=== PATIENT | male | born 1990 | race Caucasian/White ===

== ENCOUNTER 2019-11-09 09:28 | Emergency (ER) | payer OTHER ==
[2019-11-09 09:36] VITALS: BP 108/65; PULSE 90; TEMP 97.7; BMI 21.7
--- NOTE | 2019-11-09 10:40 | PDOC ---
History of Present Illness - General Chief Complaint: Respiratory Stated Complaint: COLD SYMPTOMS Time Seen by Provider: 11/09/19 09:59 History Source: Patient Exam Limitations: No Limitations - History of Present Illness Initial Comments: 11/09/19 10:36 Patient is a 29-year-old male with no past medical history who presents to the ED with complaint of bilateral hand pain after punching a wall yesterday, as well as a severe cold for the last 3 to 4 days. He states his cold got worse yesterday. He does admit to having a cough and subjective fevers. He is a smoker. He denies getting a flu shot this year. He denies any known sick contacts. His aunt gave him Advil last night which did not help. Past History - Past Medical History Allergies/Adverse Reactions: Allergies Allergy/AdvReac Type Severity Reaction Status Date / Time No Known Allergies Allergy Verified 11/09/19 09:36 Home Medications: Ambulatory Orders NK [No Known Home Medication] 11/09/19 COPD: No - Psycho Social/Smoking Cessation Hx Smoking History: Current some day smoker Information on smoking cessation initiated: No Review of Systems - Review of Systems Comments:: 11/09/19 10:36 - Review of Systems Able to Perform ROS?: Yes Constitutional: No: Night Sweats, Weakness; Positive: Fever, Chills, Loss of Appetite HEENTM: No: Eye Pain, Vision changes, Ear Pain, Throat Pain, Throat Swelling, Mouth Pain, Difficulty Swallowing; Positive nasal congestion Respiratory: No: , Shortness of Breath, Wheezing, Sputum Production; Positive: Cough Cardiac (ROS): No: Chest Pain, Chest Tightness, Palpitations, Irregular Heart Beat, Edema ABD/GI: No: Nausea, Vomiting, Abdominal Pain, Diarrhea : No Dysuria, No Hematuria, No Frequency, No Urgency, No Vaginal Discharge/ Pain, No Penile Discharge/Pain Musculoskeletal: No: Muscle Pain, Back Pain, Muscle Weakness, Neck Pain; Positive bilateral hand pain Integumentary: No: Lesions, Rash Neurological: No: Headache, Numbness, Tingling, Weakness, Speech Difficulties *Physical Exam - Vital Signs Last Vital Signs Temp Pulse Resp BP Pulse Ox 97.7 F 90 18 108/65 98 11/09/19 09:33 11/09/19 09:33 11/09/19 09:33 11/09/19 09:33 11/09/19 09:33 - Physical Exam 11/09/19 10:38 - Physical Exam General Appearance: Nourished, Appropriately Dressed, No Distress HEENT: EOMI, Normal Voice, No Pharyngeal Erythema, No Muffled/Hoarse voice, No Tonsillar Exudate, No Tonsillar Erythema, + Nasal Congestion, No Rhinorrhea, Hearing Grossly Normal, TMs Normal, No TM Bulging, No TM Dullness, No TM Erythema Neck: Supple, No Lymphadenopathy (R), No Lymphadenopathy (L), No Rigidity, No Decreased range of motion Respiratory/Chest: Lungs Clear, Normal Breath Sounds. No Respiratory Distress, No Accessory Muscle Use; Positive wet sounding cough appreciated, no adventitious lung sounds Cardiovascular: Regular Rhythm, Regular Rate, S1, S2 Gastrointestinal/Abdominal: Normal Bowel Sounds, Soft. Non-tender, No Guarding , No Rebound, No Rigidity Musculoskeletal: Normal Inspection. No Decreased Range of Motion; No reproducible bilateral hand tenderness to palpation. Healing abrasions appreciated to the dorsum of the hands scattered. No gross bony deformity appreciated. Full range of motion of the bilateral hands and all fingers. Brisk capillary refill distally bilaterally. Extremity: Normal Capillary Refill, Normal Inspection Integumentary: Normal Color, Dry. 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 Plan: -Bilateral hand x-rays ordered -Chest x-ray ordered -Will reassess 11/09/19 11:26 The patient has been made aware that his bilateral hand x-rays are negative for acute pathology. There is an old fracture seen on the right fifth metacarpal and the patient states that he had a fracture there in the past. He has been made aware that he has a viral URI and should get plenty of rest and drink plenty of fluids. He can take Tylenol or ibuprofen for fevers. He understands and agrees with this treatment and plan the patient is stable for discharge. Discharge - Discharge Information Problems reviewed: Yes Clinical Impression/Diagnosis: Viral URI with cough Contusion, hand Qualifiers: Encounter type: initial encounter Laterality: right Qualified Code(s): S60.221A - Contusion of right hand, initial encounter Contusion of left hand Qualifiers: Encounter type: initial encounter Qualified Code(s): S60.222A - Contusion of left hand, initial encounter Condition: Stable Disposition: HOME - Follow up/Referral - Patient Discharge Instructions Patient Printed Discharge Instructions: DI for Viral Upper Respiratory Infection -- Adult, DI for Contusion Additional Instructions: Get plenty of rest and drink plenty of fluids. Be sure to take Tylenol or ibuprofen for fevers or body aches. You can apply ice to your hands to help with soreness. Follow-up with your primary doctor within 1 to 2 days for repeat evaluation. - Post Discharge Activity
== END 2019-11-09 11:32 | disposition home or self-care (01) ==
LOC: JERFT 09:28
DX: J06.9 Acute upper respiratory infection, unspecified (principal); B97.89 Other viral agents as the cause of diseases classified elsewhere; S60.222A Contusion of left hand, initial encounter; S60.221A Contusion of right hand, initial encounter; W22.09XA Striking against other stationary object, initial encounter; Y93.89 Activity, other specified; Y92.89 Other specified places as the place of occurrence of the external cause; Y99.8 Other external cause status; Z72.0 Tobacco use
CPT/HCPCS: 71046-TC-FY; 73130-TC-LT-FY; 73130-TC-RT-FY; 99284-25